=== PATIENT | female | born 1985 | race Two or more races ===

== ENCOUNTER 2017-09-02 10:24 | Emergency (ER) | payer MEDICAID ==
[~2017-09-02] VITALS: Ht 154.9 cm; Wt 89.8 kg
[2017-09-02 10:42] VITALS: BP 131/89
[2017-09-02] MEDS ORDERED: Ketorolac 60mg Inj IM ONE (10:45)
--- NOTE | 2017-09-02 10:45 | Emergency Room Report ---
History of Present Illness General Chief Complaint: Vaginal Source: Patient Present Illness HPI Patient reports having vaginal bleeding since yesterday Feels a menstrual cramp Patient's last menstrual cycle was 2 weeks ago and the patient reports being usually regular and with her menstrual cycle Pain is 6/10 and cramping lower suprapubic denies any vomiting or diarrhea Denies any chest pressures of breath patient has had a tubal ligation previously Allergies: Coded Allergies: No Known Allergies (Unverified , 09/02/17) Patient History Past Medical History: see triage record Pertinent Family History: none Last Menstrual Period: 08/17/17 Now: No Reviewed Nursing Documentation: PMH: Agreed, PSxH: Agreed Nursing Documentation-PMH Past Medical History: No Stated History Review of Systems All Other Systems: negative except mentioned in HPI Physical Exam Vital Signs Date Time Temp Pulse Resp B/P (MAP) Pulse Ox O2 Delivery O2 Flow Rate FiO2 09/02/17 10:29 98.2 82 17 131/89 99 Room Air Sp02 EP Interpretation: reviewed, normal General Appearance: well appearing, no apparent distress Head: normocephalic, atraumatic Eyes: bilateral eye PERRL, bilateral eye EOMI ENT: hearing grossly normal, normal pharynx, TMs + canals normal, uvula midline Neck: full range of motion, supple, no meningismus, no bony tend Respiratory: lungs clear, normal breath sounds, no rhonchi, no respiratory distress, no retraction, no accessory muscle use Cardiovascular #1: normal peripheral pulses, regular rate, rhythm, no edema, no gallop, no JVD, no murmur Gastrointestinal: normal bowel sounds, soft, no mass, no organomegaly, non- distended, no guarding, no hernia, no pulsatile mass, no rebound, tenderness - Mild discomfort over the suprapubic area Genitourinary: no CVA tenderness Musculoskeletal: normal inspection Neurologic: oriented x3, responsive, cloth napping supervisor III-XII nml as tested, motor strength/ tone normal, sensory intact Psychiatric: mood/affect normal Skin: normal color, no rash, warm/dry, palpation normal Lymphatic: normal inspection, no adenopathy Medical Decision Making Diagnostic Impression: Primary Impression: Ovarian cyst Additional Impression: Dysfunctional uterine bleeding ER Course With the patient's history and examination, multiple differentials considered, including but not limited to , ectopic , ovarian torsion, gastritis, cholecystitis, pancreatitis, appendicitis Patient's test is negative Pelvic ultrasound reveals a large right-sided ovarian cyst Given the size patient requires close gynecology followup Otherwise no signs of torsion Patient has done better with pain and requires close followup Labs Test 09/02/17 10:40 Urine Color Red Urine Appearance Cloudy Urine pH 8 (4.5-8.0) Urine Specific [place] 1.015 (1.005-1.035) Urine Protein 3+ (NEGATIVE) Urine Glucose (UA) Negative (NEGATIVE) Urine Ketones Negative (NEGATIVE) Urine Occult Blood 5+ (NEGATIVE) Urine Nitrite Negative (NEGATIVE) Urine Bilirubin Negative (NEGATIVE) Urine Urobilinogen Normal MG/DL (0.0-1.0) Urine Leukocyte Esterase 1+ (NEGATIVE) Urine RBC Tntc /HPF (0 - 2) Urine WBC 5-10 /HPF (0 - 2) Urine Squamous Epithelial Cells Few /LPF (NONE/OCC) Urine Bacteria Few /HPF (NONE) Urine HCG, Qualitative Negative CT/MRI/US Diagnostic Results CT/MRI/US Diagnostic Results : Impression pelvic ultrasoundImpression: 6 cm right ovarian cyst, probably a functional cyst. Recommend short interval followup sonography Normal left ovary and uterus Last Vital Signs Date Time Temp Pulse Resp B/P (MAP) Pulse Ox O2 Delivery O2 Flow Rate FiO2 09/02/17 10:29 98.2 82 17 131/89 99 Room Air Status: improved Disposition: HOME, SELF-CARE Condition: Improved Scripts Acetaminophen With Codeine (T#3) (TYLENOL #3 TAB*) Y Tab 1 TAB ORAL Q8H Y for For Pain, #10 TAB Prov: JOSHUA HUYNH D.O. 09/02/17 Ibuprofen* (MOTRIN*) 600 Mg Tablet 600 MG ORAL Q8H Y for For Pain, #30 TAB 0 Refills Prov: JOSHUA HUYNH D.O. 09/02/17 Additional Instructions: Patient is provided with the discharge instructions notified to follow up with primary doctor in the next 2-3 days otherwise return to the er with any worsening symptoms. Please note that this report is being documented using [employer] technology. This can lead to erroneous entry secondary to incorrect interpretation by the dictating instrument. JOSHUA HUYNH D.O. Sep 02, 2017 10:45
[2017-09-02 11:20] LABS: APPEARANCE,URINE CLOUDY; KETONES,URINE NEGATIVE (NEGATIVE); LEUKOCYTE ESTERASE ,URINE 1+ (NEGATIVE); NITRITE,URINE NEGATIVE (NEGATIVE); PH,URINE 8 (4.5-8.0); PROTEIN,URINE 3+ (NEGATIVE); UROBILINOGEN,URINE NORMAL MG/DL (0.0-1.0)
[2017-09-02 11:24] LABS: RBC,URINE TNTC /HPF (0 - 2); SQUAMOUS EPITHELIAL CELL,UR FEW /LPF (NONE/OCC)
[2017-09-02 11:25] LABS: BACTERIA,URINE FEW /HPF
[2017-09-02] MEDS ORDERED: ACETAMINOPHEN-1 EAC1 ORAL (13:02)
[2017-09-02] MEDS ORDERED: IBUPROFEN600 MG ORAL (13:02)
[2017-09-02 14:23] VITALS: BP 127/84
--- NOTE | 2017-09-03 15:15 | Diagnostic Imaging Report ---
Indication: Pelvic pain and bleeding, negative urine test Technique: Transabdominal and transvaginal images Comparison: None Findings: Uterus measures 10 cm length by 3.4 cm AP. The endometrium measures 6 mm thick. No myometrial abnormality. The left ovary measures 4 cm in length. The right ovary demonstrates a 6 cm long axis dimension cyst. There is a small amount of free cul-de-sac fluid. Impression: 6 cm right ovarian cyst, probably a functional cyst. Recommend short interval followup sonography Normal left ovary and uterus This agrees with the preliminary interpretation provided overnight by [facility].
== END 2017-09-02 12:30 | disposition home or self-care (01) ==
LOC: EMR 11:23
DX: N83.201 Unspecified ovarian cyst, right side (principal); N93.8 Other specified abnormal uterine and vaginal bleeding
CPT/HCPCS: 76856; 81003; 81025; 96372; 99283